=== PATIENT | male | born 1975 | race Caucasian/White ===

== ENCOUNTER 2021-09-17 23:12 | Inpatient (IN) | payer OTHER ==
[~2021-09-17] VITALS: Ht 177.8 cm; Wt 81.6 kg
[~2021-09-17 23:12] MED LIST: BACTRIM DS TAB1 EACH PO; DEPAKOTE ER250 MG PO; DEPAKOTE ER500 MG PO; FLEXERIL 10 MG10 MG PO; HYDROCODON-ACE1 EAC2 PO; NAPROSYN500 MG PO; NORCO 10-325 T1 EACH PO; PROPRANOLOL HCL20 MG PO; SYNTHROID75 MCG PO
[2021-09-17 23:36] LABS: HEMOGLOBIN 10.5 gm/dl (14.0-17.5); RED BLOOD COUNT 3.27 M/UL (4.20-5.50); WHITE BLOOD COUNT 10.2 K/UL (4.5-11.0)
[2021-09-18 00:08] LABS: BUN/CREATININE RATIO 31 (0-10)
[2021-09-18] MEDS ORDERED: LEVOTHYROXINE125 MCG PO (11:33)
[2021-09-18] MEDS ORDERED: IBUPROFEN800 MG PO (11:34)
[2021-09-18] MEDS ORDERED: NAPROXEN SODIU220 MG PO (12:18)
[2021-09-18] MEDS ORDERED: ELIQUIS5 MG PO (12:19)
[2021-09-18] MEDS ORDERED: VITAMIN B-121000 MCG PO (12:21)
[2021-09-18] MEDS ORDERED: METOPROLOL SUCC25 MG PO (12:22)
[2021-09-18] MEDS ORDERED: MIRTAZAPINE7.5 MG PO (12:22)
[2021-09-18] MEDS ORDERED: LASIX20 MG PO (12:22)
[2021-09-18] MEDS ORDERED: CRESTOR20 MG PO (12:23)
[2021-09-19 08:03] LABS: WHITE BLOOD COUNT 11.1 K/UL (4.5-11.0)
[2021-09-19 08:05] LABS: HEMOGLOBIN 12.8 gm/dl (14.0-17.5); RED BLOOD COUNT 4.08 M/UL (4.20-5.50)
[2021-09-19 08:07] LABS: BUN/CREATININE RATIO 32 (0-10)
[2021-09-20 07:30] LABS: HEMOGLOBIN 12.8 gm/dl (14.0-17.5); RED BLOOD COUNT 4.15 M/UL (4.20-5.50)
[2021-09-20 08:04] LABS: BUN/CREATININE RATIO 43 (0-10)
[2021-09-20] MEDS ORDERED: LOPRESSOR 50 MG50 MG PO (14:18)
[2021-09-20] MEDS ORDERED: COZAAR 25MG TAB25 MG PO (14:18)
[2021-09-20] MEDS ORDERED: LASIX20 MG PO (14:18)
[2021-09-20] MEDS ORDERED: ALDACTONE 25MG25 MG PO (14:18)
== END 2021-09-20 17:00 | DRG 291 ==
LOC: ER1 23:12 → CDU 09-18 04:04 → M/S 09-18 04:04
PROVIDERS: Internal Medicine; Physician Assistant; ADMIT Internal Medicine
PROC: B24BZZZ Ultrasonography of Heart with Aorta (ICD-10-PCS; principal; 2021-09-20)
DX: I11.0 Hypertensive heart disease with heart failure (principal); I50.23 Acute on chronic systolic (congestive) heart failure; J96.01 Acute respiratory failure with hypoxia; Z20.822 Contact with and (suspected) exposure to COVID-19; I42.7 Cardiomyopathy due to drug and external agent; I42.8 Other cardiomyopathies; F17.210 Nicotine dependence, cigarettes, uncomplicated; G62.9 Polyneuropathy, unspecified; F15.10 Other stimulant abuse, uncomplicated; I27.20 Pulmonary hypertension, unspecified; E03.9 Hypothyroidism, unspecified; R59.0 Localized enlarged lymph nodes; I08.3 Combined rheumatic disorders of mitral, aortic and tricuspid valves; Z86.711 Personal history of pulmonary embolism; Z79.01 Long term (current) use of anticoagulants; Z88.5 Allergy status to narcotic agent; Z88.0 Allergy status to penicillin; Z80.9 Family history of malignant neoplasm, unspecified
CPT/HCPCS: ECHO; 0240U; 36415; 71045; 80048; 80053; 82550; 82553; 83735; 83874; 83880; 84484; 85025; 85027; 85379; 93005; 93306; 96374; 99285; J1940; Q9967

== ENCOUNTER 2021-09-23 09:06 | Emergency (ER) | payer OTHER ==
[~2021-09-23 09:06] MED LIST changes: +ALDACTONE 25MG25 MG PO; +COZAAR 25MG TAB25 MG PO; +CRESTOR20 MG PO; +ELIQUIS5 MG PO; +IBUPROFEN800 MG PO; +LASIX20 MG PO; +LEVOTHYROXINE125 MCG PO; +LOPRESSOR 50 MG50 MG PO; +METOPROLOL SUCC25 MG PO; +MIRTAZAPINE7.5 MG PO; +NAPROXEN SODIU220 MG PO; +VITAMIN B-121000 MCG PO
[2021-09-23 11:09] LABS: HEMOGLOBIN 11.7 gm/dl (14.0-17.5); RED BLOOD COUNT 3.68 M/UL (4.20-5.50); WHITE BLOOD COUNT 11.1 K/UL (4.5-11.0)
[2021-09-23 11:35] LABS: BUN/CREATININE RATIO 33 (0-10)
== END 2021-09-23 14:26 | disposition home or self-care (01) ==
LOC: ER1 09:06
PROVIDERS: Nurse Practitioner
DX: M79.641 Pain in right hand (principal); M79.642 Pain in left hand; M25.571 Pain in right ankle and joints of right foot; M25.572 Pain in left ankle and joints of left foot; M25.561 Pain in right knee; M25.562 Pain in left knee; M25.521 Pain in right elbow; M25.522 Pain in left elbow; M25.511 Pain in right shoulder; M25.512 Pain in left shoulder; M25.551 Pain in right hip; M25.552 Pain in left hip; I11.0 Hypertensive heart disease with heart failure; I50.9 Heart failure, unspecified; Z20.822 Contact with and (suspected) exposure to COVID-19; Z88.0 Allergy status to penicillin; F17.210 Nicotine dependence, cigarettes, uncomplicated
CPT/HCPCS: 80053; 81001; 84550; 85025; 85652; 86140; 99283; U0002

== ENCOUNTER 2021-11-02 20:41 | Emergency (ER) | payer OTHER ==
[2021-11-02 21:31] LABS: HEMOGLOBIN 12.2 gm/dl (14.0-17.5); RED BLOOD COUNT 4.02 M/UL (4.20-5.50); WHITE BLOOD COUNT 11.8 K/UL (4.5-11.0)
[2021-11-02 21:37] LABS: BUN/CREATININE RATIO 20 (0-10)
== END 2021-11-03 00:10 | disposition home or self-care (01) ==
LOC: ER1 20:41
PROVIDERS: Emergency Medicine
DX: M79.661 Pain in right lower leg (principal); F17.200 Nicotine dependence, unspecified, uncomplicated; J44.9 Chronic obstructive pulmonary disease, unspecified; Z88.0 Allergy status to penicillin; I50.9 Heart failure, unspecified; Z86.711 Personal history of pulmonary embolism; Z86.718 Personal history of other venous thrombosis and embolism
CPT/HCPCS: 80053; 85025; 85379; 85610; 85730; 93005; 93971; 99284; Q9967

== ENCOUNTER 2022-01-20 10:02 | Outpatient (CLI) | payer OTHER ==
[~2022-01-20] VITALS: Ht 177.8 cm; Wt 77.8 kg
[2022-01-20] MEDS ORDERED: K-TAB ER10 MEQ PO (10:36)
[2022-01-20] MEDS ORDERED: HYDROCODON-ACE1 EAC4 PO (18:30)
[2022-01-20] MEDS ORDERED: CLINDAMYCIN HC300 MG PO (18:30)
== END 2022-01-21 12:08 | disposition home or self-care (01) ==
LOC: CATH 10:02 → PROG CARE 18:50 → CATH 01-21 12:08
DX: I50.22 Chronic systolic (congestive) heart failure (principal); I42.0 Dilated cardiomyopathy; I45.10 Unspecified right bundle-branch block; I10 Essential (primary) hypertension; E03.9 Hypothyroidism, unspecified; F17.200 Nicotine dependence, unspecified, uncomplicated; F19.11 Other psychoactive substance abuse, in remission; I25.2 Old myocardial infarction; E05.90 Thyrotoxicosis, unspecified without thyrotoxic crisis or storm; Z20.822 Contact with and (suspected) exposure to COVID-19; Z88.0 Allergy status to penicillin; Z79.01 Long term (current) use of anticoagulants
CPT/HCPCS: 33225; 33249; 71045; 93005; 93641; 99152; 99153; C1769; C1882; C1895; C1898; C1900; J1644; J2250; J2270; J3010; J3370; J7040; J7050; J7070; Q9965